=== PATIENT | female | born 1990 | race African-American/Black ===

== ENCOUNTER 2018-08-22 17:54 | Emergency (ER) | payer OTHER ==
[~2018-08-22] VITALS: Ht 154.9 cm; Wt 44.5 kg
[~2018-08-22 17:54] MED LIST: IBUPROFEN 600600 M1 PO
[2018-08-22] MEDS ORDERED: CORTISPORIN OTI10 M2 OTIC (19:44)
[2018-08-22 20:09] VITALS: BP 176/89
== END 2018-08-22 20:10 | disposition home or self-care (01) ==
LOC: ER 17:54
DX: H60.91 Unspecified otitis externa, right ear (principal)

== ENCOUNTER 2018-09-10 09:39 | Emergency (ER) | payer OTHER ==
[~2018-09-10] VITALS: Ht 152.4 cm; Wt 44.5 kg
[~2018-09-10 09:39] MED LIST changes: +CORTISPORIN OTI10 M2 OTIC
[2018-09-10 09:40] VITALS: BP 134/88
== END 2018-09-10 10:37 | disposition home or self-care (01) ==
LOC: ER 09:39
DX: L29.8 Other pruritus (principal)

== ENCOUNTER 2019-01-11 10:32 | Emergency (ER) | payer OTHER ==
[~2019-01-11] VITALS: Ht 154.9 cm; Wt 45.8 kg
[2019-01-11 11:45] VITALS: BP 128/95
== END 2019-01-11 11:45 | disposition left against medical advice (07) ==
LOC: ER 10:32
DX: Z53.21 Procedure and treatment not carried out due to patient leaving prior to being seen by health care provider (principal)